=== PATIENT | male | born 1960 | race Caucasian/White ===

== ENCOUNTER 2021-08-10 11:34 | Inpatient (IN) | payer MEDICARE, MEDICAID ==
[~2021-08-10] VITALS: Ht 177.8 cm; Wt 102.0 kg
[2021-08-10] MEDS ORDERED: NEXIUM40 MG PO (13:21)
[2021-08-10] MEDS ORDERED: PLAVIX 75 MG TA75 MG PO (13:21)
[2021-08-10] MEDS ORDERED: TENORMIN 25 MG25 MG PO (13:22)
[2021-08-10] MEDS ORDERED: LOVAZA1 GM PO (13:22)
[2021-08-10] MEDS ORDERED: NORVASC10 MG PO (13:22)
[2021-08-10] MEDS ORDERED: HYDRALAZINE HCL50 MG PO (13:22)
[2021-08-10] MEDS ORDERED: CRESTOR40 MG PO (13:22)
[2021-08-10] MEDS ORDERED: PROAIR HFA8.5 GM INH (13:23)
[2021-08-10] MEDS ORDERED: PREDNISONE10 MG PO (13:23)
[2021-08-10] MEDS ORDERED: ASPIRIN EC81 MG PO (13:56)
[2021-08-10] MEDS ORDERED: ZINC50 M3 PO (13:57)
[2021-08-10] MEDS ORDERED: VITAMIN C1000 MG PO (13:57)
[2021-08-10] MEDS ORDERED: VITAMIN D3125 MCG PO (13:57)
[2021-08-10] MEDS ORDERED: VITAMIN E400 UNI2 PO (13:58)
[2021-08-10 14:29] LABS: HEMOGLOBIN 14.9 gm/dl (14.0-17.5); RED BLOOD COUNT 4.75 M/UL (4.20-5.50); WHITE BLOOD COUNT 16.7 K/UL (4.5-11.0)
[2021-08-10 14:45] LABS: BUN/CREATININE RATIO 17 (0-10)
--- NOTE | 2021-08-10 17:50 | NUR ---
PATIENT NOTED TO HAVE ANEGATIVE COVID TEST AT [facility] WITH A PAPER COPY ON CHART. STATED THAT WE DO NOT HAVE TO REPEAT TEST AT THIS TIME.
[2021-08-11 03:57] LABS: HEMOGLOBIN 14.3 gm/dl (14.0-17.5); RED BLOOD COUNT 4.64 M/UL (4.20-5.50); WHITE BLOOD COUNT 14.6 K/UL (4.5-11.0)
[2021-08-11 04:01] LABS: BUN/CREATININE RATIO 12 (0-10)
[2021-08-11] MEDS ORDERED: ENDOCET 7.5-321 EACH PO (12:30)
[2021-08-12 04:03] LABS: HEMOGLOBIN 13.1 gm/dl (14.0-17.5); RED BLOOD COUNT 4.28 M/UL (4.20-5.50); WHITE BLOOD COUNT 11.1 K/UL (4.5-11.0)
[2021-08-12 05:10] LABS: BUN/CREATININE RATIO 17 (0-10)
--- NOTE | 2021-08-12 22:02 | NUR ---
TELE WAS DC AT 1219 DAYSHIFT ON 08/[address] ASHRAF AND WAS ONLY DOCUMENTED IN [facility] COMMUNICATIONS. I WENT IN AND DC THE ORDER UNDER ALL ORDERS PER TELE REQUEST.
[2021-08-13 04:22] LABS: HEMOGLOBIN 12.6 gm/dl (14.0-17.5); RED BLOOD COUNT 4.12 M/UL (4.20-5.50)
[2021-08-13 04:42] LABS: BUN/CREATININE RATIO 17 (0-10)
--- NOTE | 2021-08-13 05:09 | NUR ---
contacted pharmacy regarding vanc trough of 23.5 Leopoldo said its okay to still give because it was drawn early at 0300.
--- NOTE | 2021-08-13 06:07 | NUR ---
ON MEDITECH SHEETS THE CHIEF COMPLAINT STATES SEVERE LEFT WRIST PAIN. PATIENTS PAIN AND CELLULITIS IS ON THE RIGHT SIDE. PROCEDURE DONE ON RIGHT SIDE, RIGHT ARM ELEVATED W/ STOCKNETET WHILE IN BED AND MAY USE SLING WHILE OOB.
--- NOTE | 2021-08-13 20:01 | NUR ---
MARC REN SWAB PER CASA, SHE WILL RESCHEDULE CLOSER TO PROCEDURE DATE
[2021-08-14 06:07] LABS: HEMOGLOBIN 13.5 gm/dl (14.0-17.5); RED BLOOD COUNT 4.35 M/UL (4.20-5.50); WHITE BLOOD COUNT 8.4 K/UL (4.5-11.0)
[2021-08-14 06:45] LABS: BUN/CREATININE RATIO 17 (0-10)
[2021-08-15 06:54] LABS: HEMOGLOBIN 13.9 gm/dl (14.0-17.5); RED BLOOD COUNT 4.52 M/UL (4.20-5.50); WHITE BLOOD COUNT 8.4 K/UL (4.5-11.0)
[2021-08-15 07:33] LABS: BUN/CREATININE RATIO 13 (0-10)
--- NOTE | 2021-08-16 13:57 | NUR ---
[id number] Patient's concerned about patient having surgery a third time this week. I told her I would contact surgery & have one of the anesthesiologist come speak with her. She stated that would be fine. Called Surgery Dept., they said they would send one up.
--- NOTE | 2021-08-17 13:41 | NUR ---
Spoke with [place] Mary re: PICC line placement. Pt to have surgery at 1400 today. Will readdress need for PICC post surgery.
[2021-08-18 02:38] LABS: HEMOGLOBIN 11.9 gm/dl (14.0-17.5); RED BLOOD COUNT 3.93 M/UL (4.20-5.50); WHITE BLOOD COUNT 5.2 K/UL (4.5-11.0)
[2021-08-18 03:05] LABS: BUN/CREATININE RATIO 14 (0-10)
[2021-08-18] MEDS ORDERED: METOPROLOL SUCC25 MG PO (12:47)
[2021-08-18] MEDS ORDERED: GLUCOPHAGE 850850 MG PO (12:50)
[2021-08-18] MEDS ORDERED: CUBICIN 500 MG500 MG IV (12:50)
== END 2021-08-18 12:55 | disposition home health service (06) | DRG 495 ==
LOC: MED SURG 4 12:52
PROVIDERS: Internal Medicine Infectious Disease; Orthopaedic Surgery; Physician Assistant Medical; ADMIT Internal Medicine
PROC: 3E04329 Introduction of Other Anti-infective into Central Vein, Percutaneous Approach (ICD-10-PCS; 2021-08-10)
PROC: 0PPK04Z Removal of Internal Fixation Device from Right Ulna, Open Approach (ICD-10-PCS; 2021-08-11)
PROC: 0PPH04Z Removal of Internal Fixation Device from Right Radius, Open Approach (ICD-10-PCS; 2021-08-11)
PROC: 0KB90ZZ Excision of Right Lower Arm and Wrist Muscle, Open Approach (ICD-10-PCS; 2021-08-11)
PROC: 0PBH0ZZ Excision of Right Radius, Open Approach (ICD-10-PCS; 2021-08-15)
PROC: 0PBK0ZZ Excision of Right Ulna, Open Approach (ICD-10-PCS; 2021-08-15)
PROC: 0PDK0ZZ Extraction of Right Ulna, Open Approach (ICD-10-PCS; 2021-08-17)
PROC: 3E0V329 Introduction of Other Anti-infective into Bones, Percutaneous Approach (ICD-10-PCS; 2021-08-17)
PROC: 0PDH0ZZ Extraction of Right Radius, Open Approach (ICD-10-PCS; principal; 2021-08-17 17:00)
DX: T84.69XA Infection and inflammatory reaction due to internal fixation device of other site, initial encounter (principal); A41.02 Sepsis due to Methicillin resistant Staphylococcus aureus; Z20.822 Contact with and (suspected) exposure to COVID-19; M86.631 Other chronic osteomyelitis, right radius and ulna; L02.413 Cutaneous abscess of right upper limb; L03.113 Cellulitis of right upper limb; K21.9 Gastro-esophageal reflux disease without esophagitis; E11.69 Type 2 diabetes mellitus with other specified complication; Y83.8 Other surgical procedures as the cause of abnormal reaction of the patient, or of later complication, without mention of misadventure at the time of the procedure; E78.5 Hyperlipidemia, unspecified; I25.10 Atherosclerotic heart disease of native coronary artery without angina pectoris; I10 Essential (primary) hypertension; J44.9 Chronic obstructive pulmonary disease, unspecified; Z79.4 Long term (current) use of insulin; Z87.81 Personal history of (healed) traumatic fracture; Z79.01 Long term (current) use of anticoagulants; Z79.82 Long term (current) use of aspirin; Z95.5 Presence of coronary angioplasty implant and graft; Z87.891 Personal history of nicotine dependence; Z82.49 Family history of ischemic heart disease and other diseases of the circulatory system; Z83.3 Family history of diabetes mellitus; Z80.9 Family history of malignant neoplasm, unspecified; Z98.890 Other specified postprocedural states
CPT/HCPCS: 36415; 71045; 73100; 80048; 80053; 80202; 82550; 82962; 83036; 83735; 85025; 85027; 85610; 85730; 86140; 87070; 87077; 87186; 87205; 93005; 94640; 94664; 94760; C1713; C1751; J0171; J0878; J1100; J1170; J1885; J2001; J2250; J2405; J2543; J2704; J2795; J3010; J3260; J3370; J7030; J7070; J7120; U0002

== ENCOUNTER 2021-08-22 13:07 | Emergency (ER) | payer MEDICARE ==
[~2021-08-22 13:07] MED LIST: ASPIRIN EC81 MG PO; CRESTOR40 MG PO; CUBICIN 500 MG500 MG IV; ENDOCET 7.5-321 EACH PO; GLUCOPHAGE 850850 MG PO; HYDRALAZINE HCL50 MG PO; LOVAZA1 GM PO; METOPROLOL SUCC25 MG PO; NEXIUM40 MG PO; NORVASC10 MG PO; PLAVIX 75 MG TA75 MG PO; PREDNISONE10 MG PO; PROAIR HFA8.5 GM INH; TENORMIN 25 MG25 MG PO; VITAMIN C1000 MG PO; VITAMIN D3125 MCG PO; VITAMIN E400 UNI2 PO; ZINC50 M3 PO
[2021-08-22 14:07] LABS: HEMOGLOBIN 11.9 gm/dl (14.0-17.5); RED BLOOD COUNT 3.93 M/UL (4.20-5.50); WHITE BLOOD COUNT 8.4 K/UL (4.5-11.0)
== END 2021-08-22 18:55 | disposition home or self-care (01) ==
LOC: ER1 13:07
PROVIDERS: Physician Assistant
DX: R50.82 Postprocedural fever (principal); Z87.891 Personal history of nicotine dependence; E11.9 Type 2 diabetes mellitus without complications; J44.9 Chronic obstructive pulmonary disease, unspecified; E78.5 Hyperlipidemia, unspecified; I10 Essential (primary) hypertension
CPT/HCPCS: 73110; 80053; 83605; 85025; 85652; 86140; 87040; 99283

== ENCOUNTER → 2021-09-06 | Outpatient (CLI) | payer MEDICARE ==
[~2021-09-06] MED LIST changes: +LEVOFLOXACIN750 MG PO
== END ==
LOC: OPSV 13:34
DX: M86.68 Other chronic osteomyelitis, other site (principal)
CPT/HCPCS: G0463

== ENCOUNTER → 2021-09-14 | Day surgery (SDC) | payer MEDICARE ==
[~2021-09-14] VITALS: Ht 177.8 cm; Wt 98.9 kg
== END | disposition home or self-care (01) ==
LOC: OR 10:24
DX: E11.69 Type 2 diabetes mellitus with other specified complication (principal); M86.631 Other chronic osteomyelitis, right radius and ulna; B95.62 Methicillin resistant Staphylococcus aureus infection as the cause of diseases classified elsewhere; I25.10 Atherosclerotic heart disease of native coronary artery without angina pectoris; E78.5 Hyperlipidemia, unspecified; I10 Essential (primary) hypertension; J44.9 Chronic obstructive pulmonary disease, unspecified; Z95.1 Presence of aortocoronary bypass graft; Z95.5 Presence of coronary angioplasty implant and graft; Z79.82 Long term (current) use of aspirin; Z79.84 Long term (current) use of oral hypoglycemic drugs; Z20.822 Contact with and (suspected) exposure to COVID-19
CPT/HCPCS: 82962; J0171; J1100; J1885; J2001; J2250; J2704; J2795; J3010; J7120; U0002

== ENCOUNTER → 2021-10-18 | Outpatient (CLI) | payer MEDICARE | LOC: OPSV 12:30 | DX: M86.8X8 Other osteomyelitis, other site (principal) | CPT/HCPCS: G0463 ==

== ENCOUNTER → 2021-11-29 | Outpatient (CLI) | payer MEDICARE ==
[2021-11-29 13:07] LABS: HEMOGLOBIN 14.2 gm/dl (14.0-17.5); RED BLOOD COUNT 5.12 M/UL (4.20-5.50); WHITE BLOOD COUNT 6.8 K/UL (4.5-11.0)
== END ==
LOC: OPSV 11-15 12:00 → EDBD 12:08
PROVIDERS: Internal Medicine Infectious Disease
DX: M86.68 Other chronic osteomyelitis, other site (principal); T81.40XA Infection following a procedure, unspecified, initial encounter
CPT/HCPCS: 36415; 80053; 85025; 86140

== ENCOUNTER → 2022-01-10 | Outpatient (CLI) | payer MEDICARE | LOC: OPSV 11:52 → EDBD 12:00 | DX: M86.68 Other chronic osteomyelitis, other site (principal); T84.69XA Infection and inflammatory reaction due to internal fixation device of other site, initial encounter | CPT/HCPCS: G0463 ==